=== PATIENT | male | born 1990 | race American Indian/Alaskan Native ===

== ENCOUNTER 2021-03-26 22:17 | Emergency (ER) | payer SELFPAY ==
[2021-03-27 00:34] VITALS: BP 122/84
[2021-03-27] MEDS ORDERED: IBUPROFEN 600 MG TAB PO ONE (01:35)
[2021-03-27] MEDS ORDERED: HYDROcodone/ACETAMINOPHEN 7.5-325MG TAB PO ONE (01:35)
[2021-03-27] MEDS ORDERED: AMOXICILLIN/K CLAV 875/125MG TAB PO ONE (01:35)
== END 2021-03-27 02:10 | disposition home or self-care (01) ==
LOC: ED 22:17
DX: K04.7 Periapical abscess without sinus (principal); K05.10 Chronic gingivitis, plaque induced; K02.9 Dental caries, unspecified; Z79.899 Other long term (current) drug therapy
CPT/HCPCS: 99282

== ENCOUNTER 2021-05-15 22:32 | Emergency (ER) | payer OTHER ==
[2021-05-15 23:45] VITALS: BP 126/68
[2021-05-16] MEDS ORDERED: IBUPROFEN 800 MG TAB PO ONE (04:15)
[2021-05-16] MEDS ORDERED: ACETAMINOPHEN 500 MG TAB PO ONE (04:15)
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
== END 2021-05-16 06:11 | disposition home or self-care (01) ==
LOC: ED 22:32
DX: S39.012A Strain of muscle, fascia and tendon of lower back, initial encounter (principal); S16.1XXA Strain of muscle, fascia and tendon at neck level, initial encounter; R07.89 Other chest pain; Z79.899 Other long term (current) drug therapy; V87.7XXA Person injured in collision between other specified motor vehicles (traffic), initial encounter; Y92.410 Unspecified street and highway as the place of occurrence of the external cause; Y93.89 Activity, other specified; Y99.8 Other external cause status
CPT/HCPCS: 71046; 72040; 72100